=== PATIENT | male | born 1985 | race Caucasian/White ===

== ENCOUNTER → 2019-09-13 12:51 | Outpatient (ROUT) | payer OTHER, MEDICAID, SELFPAY ==
[2019-09-13 13:18] LABS: Influenza A - CEPHEID Flu A NEGATIVE (NEGATIVE); Influenza B - CEPHEID Flu B NEGATIVE (NEGATIVE)
== END ==
PROVIDERS: Family Provider Family Medicine; Visit Provider Family Medicine
DX: R50.9 Fever, unspecified (principal); R05 Cough
CPT/HCPCS: 87502

== ENCOUNTER → 2020-02-22 13:26 | Outpatient (ROUT) | payer OTHER, MEDICAID, SELFPAY ==
[2020-02-22 16:07] LABS: INR 1.1 (0.9-1.3); Prothrombin Time 12.4 SECONDS (10.1-12.7)
== END ==
PROVIDERS: Family Provider Family Medicine; PCP Family Medicine; Visit Provider Family Medicine
DX: K62.5 Hemorrhage of anus and rectum (principal)
CPT/HCPCS: 85610

== ENCOUNTER 2024-11-04 00:46 | Emergency (ER) | payer OTHER, SELFPAY ==
--- NOTE | 2024-11-04 00:47 | EKG_ITS ---
[facility] [address] [place] [address] Test Date: 2024-11-04 Pat Name: Jan Smith Department: [facility] Room: Gender: Male Legal Billing Coordinator: : 1985 Requested By: Order Number: [id number] Reading MD: Vini Hawk Measurements Intervals [place] Rate: 87 P: 57 GA: 170 QRS: 23 QRSD: 76 T: 41 QT: 358 QTc: 430 Interpretive Statements Normal sinus rhythm Electronically Signed On 11-04-2024 8:01:07 PST by Vini Hawk
[2024-11-04 00:50] VITALS: BP 142/86; PULSE 95; RESP 20; TEMP 36.8; O2SAT 99; BMI 24.3
--- NOTE | 2024-11-04 01:02 | ED.CHESTPAIN ---
HPI - Chest Pain General Chief Complaint: Extremity Problem,Nontraumatic Stated Complaint: Possible heart attack or stroke Time Seen by Provider: 11/04/24 00:57 Source: patient Mode of arrival: Wheelchair History of Present Illness HPI narrative: 39-year-old male with a past medical history of anxiety depression comes into the ED from home for evaluation of multiple complaints. Patient states that he has been feeling a weird pressure sensation into his chest denies any actual shortness of breath or pain, he also states that he has been feeling these tingling sensations throughout his whole-body after he woke up. States that it is hard to describe but feels like his whole-body is asleep and is worried he has having a stroke. Patient does admit to taking edibles on a daily basis states he did take this last night before sleeping. At time of evaluation patient NIH of 0 no focal deficits noted. Not complaining of any other symptoms such as headache visual disturbances shortness of breath fever chills nausea vomiting abdominal pain or any other GI/ some time. Related Data Home Medications Medication Instructions Recorded Confirmed No Known Home Medications 11/08/19 11/08/19 Allergies Allergy/AdvReac Type Severity Reaction Status Date / Time cefaclor [From Ceclor] AdvReac Unknown Verified 11/08/19 09:27 Review of Systems Review of Systems Narrative: General: Denies fever, chills, weight loss HEENT: Denies headache, eye drainage, eye irritation, head trauma, sore throat, voice change Cardiovascular: Positive chest pressure, Denies any chest pain, palpitations, shortness of breath, tachycardia Respiratory: Denies any shortness of breath, cough, wheeze, stridor GI/: Denies any abdominal pain, nausea, vomiting, diarrhea, bright red blood per rectum, melanotic stools, urinary frequency, urinary retention, dysuria, hematuria MSK: Denies any joint pain, muscle pains, swelling Skin: Denies any rashes, lesions, discoloration Neuro: Tingling sensation throughout his body, Denies any headache, lightheadedness, dizziness, fainting, weakness Psych: Denies SI/HI Patient History Medical History (Updated 11/04/24 @ 02:28 by Noel Burnham DO) Thumb laceration Social History Smoking Status: Never smoker Smoking Status: Never smoker Alcohol type: beer Exam Narrative Exam Narrative: General: Cooperative, comfortable, well-developed, not in acute distress HEENT: Normocephalic, atraumatic, PERRLA, normal sclera, eyelids normal, Neck: Active full range of motion, atraumatic Chest: Normal to inspection, negative crepitus, no overlying erythema ecchymosis Respiratory: Normal respiratory effort, not in acute respiratory distress, clear to auscultation bilaterally negative cough, wheeze, tachypnea, rhonchi, rales Cardiology: Regular rate rhythm negative gallop, murmur, rubs GI/: Normal to inspection, soft, nonrigid, no tenderness to palpation, exam deferred MSK: Full range of active range of motion of all 4 extremities, atraumatic Skin: No rashes lesions noted Neuro: NIH of 0, no focal deficits noted Alert awake oriented x3, moves all 4 extremities spontaneously, cranial nerves intact, able to answer all questions appropriately follows commands appropriately Psych: Cooperative, negative suicidal or homicidal ideations Initial Vital Signs Initial Vital Signs: Vital Signs Temperature 98.2 F 11/04/24 00:50 Pulse Rate 95 H 11/04/24 00:50 Respiratory Rate 20 11/04/24 00:50 Blood Pressure 142/86 H 11/04/24 00:50 Pulse Oximetry 99 11/04/24 00:50 Oxygen Delivery Method Room Air 11/04/24 00:50 Course Orders Ordered: ED Orders 11/04/24 00:47 EKG-12 Lead Stat 11/04/24 00:58 Complete Blood Count AUTO DIFF Stat Comprehensive Metabolic Panel Stat Lipase Stat MAG [Magnesium] Stat Troponin & CK Cardiac Panel Stat 11/04/24 01:00 Urine Drug Screen, Rapid Stat 11/04/24 01:02 CT head/brain wo con Stat 11/04/24 01:04 XR chest 1V Stat Discontinued Medications Lorazepam (Lorazepam 2 Mg/Ml Inj) 1 mg IV NOW ONE Stop: 11/04/24 01:03 Last Admin: 11/04/24 01:17 Dose: 1 mg Documented By: LEONELA Vital Signs Vital signs: Vital Signs - 8 hr 11/04/24 00:50 Temperature 98.2 F Pulse Rate 95 H Respiratory Rate 20 Blood Pressure 142/86 H Pulse Oximetry 99 Oxygen Delivery Method Room Air MDM - Chest Pain Differential Diagnosis Differential diagnosis: Likely st elevation myocardial infarction, chest pain and other (Electrolyte abnormality, CVA,) Lab Data 11/04/24 00:58 11/04/24 00:58 Labs: Lab Results 11/04/24 11/04/24 Range/Units 00:58 01:00 WBC 9.8 (4.5-11.0) X10^3/uL RBC 5.15 (4.5-5.9) X10^6/uL Hgb 14.9 (13.5-17.5) g/dL Hct 43.5 (41-53) % MCV 84.5 (80-100) fL MCH 29.0 (26-34) PG MCHC 34.3 (30-36) % RDW 13.1 (11.6-14.8) % Plt Count 340 (150-400) X10^3/uL Neut % (Auto) 50.5 (50-75) % Lymph % (Auto) 37.6 (25-40) % [place] % (Auto) 7.3 (3-14) % Eos % (Auto) 3.9 (2-4) % Baso % (Auto) 0.7 (0-2) % Neut # (Auto) 5000 (8359-8594) /uL Lymph # (Auto) 3700 (1977-0024) /uL [place] # (Auto) 700 (0-900) /uL Eos # (Auto) 400 (0-450) /uL Baso # (Auto) 100 (0-100) /uL Sodium 137 (137-145) mmol/L Potassium 3.7 (3.4-5.1) mmol/L Chloride 103 (98-107) mmol/L Carbon Dioxide 27 (22-32) mmol/L BUN 16 (9-20) mg/dL Creatinine 1.21 (0.66-1.25) mg/dL Estimated GFR > 60 (>60) mL/min BUN/Creatinine Ratio 13.2 (6-22) Glucose 210 H (70-100) mg/dL Calcium 9.1 (8.4-10.2) mg/dL Magnesium 2.2 (1.6-2.3) mg/dL Total Bilirubin 0.6 (0.2-1.3) mg/dL AST 33 (17-59) IU/L ALT 27 (<50) IU/L Alkaline Phosphatase 61 (38-126) U/L Total Creatine Kinase 73 (55-170) U/L Troponin I < 0.012 (0.01-0.034) ng/mL Total Protein 7.2 (6.3-8.2) g/dL Albumin 4.3 (3.5-5.0) g/dL Globulin 2.9 (1.7-4.1) g/dL Albumin/Globulin Ratio 1.5 (1.0-2.8) Lipase 63 (23-300) U/L U Opiates 300ng/mL cut Negative (Negative) Ur Oxycodone Screen Negative (Negative) Urine Methadone Screen Negative (Negative) Ur Barbiturates Screen Negative (Negative) U Tricyclic Antidepress Negative (Negative) Ur Phencyclidine Scrn Negative (Negative) Ur Amphetamines Screen Negative (Negative) U Methamphetamines Scrn Negative (Negative) Ur MDMA Scrn (Ecstasy) Negative (Negative) U Benzodiazepines Scrn Negative (Negative) Urine Cocaine Screen Negative (Negative) U Marijuana (THC) Screen Positive H (Negative) Urine pH Normal (Normal) Urine Specific [place] Normal (Normal) Ur Creatinine Normal (Normal) Imaging Data Chest x-ray: Radiologist's Impression: Preliminary read showing no acute cardiopulmonary abnormalities CT scan - head: Radiologist's Impression: [place] [address] CT Scan Report Signed Patient: Jan Smith MR#: [id number] : 1985 Acct:[id number] Age/Sex: 39 / M Date of Service: 11/04/24 Loc: ED Accession Number: [id number] Procedure: CT head/brain wo con Ordering Provider: Noel Burnham D.O. PROCEDURE: CT HEAD/BRAIN WO CON INDICATIONS: numbness tingling throughout body TECHNIQUE: Noncontrast 4.5 mm thick angled axial sections acquired from the foramen magnum to the vertex, with coronal and sagittal reformats. For radiation dose reduction, the following was used: automated exposure control, adjustment of mA and/or kV according to patient size. COMPARISON: None. FINDINGS: Image quality: Diagnostic. CSF spaces: Basal cisterns are patent. No extra-axial fluid collections. Ventricles are normal in size and shape. Brain: No midline shift. No intracranial masses or hemorrhage. Burgess-white matter interface is normal. Skull and face: Calvarium and visualized facial bones are intact, without suspicious lesions. Sinuses: Air-fluid level is seen in the right maxillary sinus. Frothy material is seen in the left maxillary sinus. The remaining visualized paranasal sinuses and the mastoid air cells are clear. IMPRESSION: 1. No acute intracranial pathology. 2. Acute sinusitis involving the bilateral maxillary sinuses. ECG Data Interpretation: EKG interpreted ED physician sinus 87 beats per minute QTC [address] changes no STEMI MDM Narrative Medical decision making narrative: 39-year-old male history anxiety depression presents for multiple complaints. Stating that he was feeling chest pressure upon awaking, states that he woke up several hours ago feeling slightly anxious, was also complaining of tingling sensation to his whole-body denies any trauma or falls at evaluation NIH of 0. EKG nonischemic in nature, CT head showing no acute intracranial abnormality concerning for stroke mass or bleed. Patient's lab work unremarkable, troponin negative, heart score 0. Chest x-ray without any acute cardiopulmonary abnormalities. Patient is urinalysis was positive for marijuana, he admits to eating edibles daily, patient's symptoms more likely secondary to acute anxiety/stress. Regardless patient was instructed to follow up with PCP and Cardiology in outpatient setting. Strict return precautions were given he verbalized understanding of this and agrees to being discharged home with outpatient follow up Discharge Plan Departure Patient Disposition: Home Clinical Impression: Chest pressure Activity Restrictions/Additional Instructions: Please follow up with Cardiology and primary care Please read the discharge instructions sheet carefully and bring all papers to all doctor follow-up visits, as it may contain information that your doctor may want to see. Disease processes change and evolve, if your symptoms worsen or if you develop any new symptoms that are concerning to you please return for evaluation. Your evaluation today does not show any evidence of any life-threatening/serious illnesses requiring admission to the hospital or surgery. Please follow-up with your doctor for re-evaluation in approximately 1 day. Seek immediate medical attention for any worrisome symptoms. *If you do not have a primary care provider please contact the [facility] Resource line at [phone]. They will ask some questions about your medical history and help get you set up with a doctor in the community. Prescriptions: No Action No Known Home Medications Referrals: Frantz Johnson MD [Physician] - Tauxe,Timbo, MD [Primary Care Provider] - Stand Alone Forms: Patient Portal/API/Survey
--- NOTE | 2024-11-04 01:04 | DI.RAD.S_ITS ---
PROCEDURE: XR CHEST 1V INDICATIONS: chest pain TECHNIQUE: One view of the chest was acquired. COMPARISON: None. FINDINGS: Surgical changes and devices: None. Lungs and pleura: Lungs are clear. No pleural effusions or pneumothorax. Mediastinum: Mediastinal contours appear normal. Heart size is normal. Bones and chest wall: No suspicious bony lesions. Overlying soft tissues appear unremarkable. IMPRESSION: No acute cardiopulmonary abnormality is seen. Approved by: John Bell M.D. on 11/04/2024 at 1:31
--- NOTE | 2024-11-04 01:10 | PC.NURSE ---
Pt provided urine sample in urinal standing next to ED stretcher without assistance. Taken to imaging via wheel chair with ekg technician.
[2024-11-04 01:11] LABS: Add Manual Diff / Slide Review NO; Basophils Absolute Auto 100 /uL (0-100); Basophils Percent Auto 0.7 % (0-2); Eosinophils Absolute Auto 400 /uL (0-450); Eosinophils Percent Auto 3.9 % (2-4); Hematocrit 43.5 % (41-53); Hemoglobin 14.9 g/dL (13.5-17.5); Lymphocytes Absolute Auto 3700 /uL (1100-4500); Lymphocytes Percent Auto 37.6 % (25-40); Mean Corpuscular HGB Conc 34.3 % (30-36); Mean Corpuscular Volume 84.5 fL (80-100); Monocytes Absolute Auto 700 /uL (0-900); Monocytes Percent Auto 7.3 % (3-14); Neutrophils Absolute Auto 5000 /uL (1500-7000); Neutrophils Percent Auto 50.5 % (50-75); Platelet Count 340 X10^3/uL (150-400); Red Blood Cell Count 5.15 X10^6/uL (4.5-5.9); Red Cell Distribution Width 13.1 % (11.6-14.8); White Blood Cell Count 9.8 X10^3/uL (4.5-11.0)
[2024-11-04] MEDS: LORazepam 2 MG/ML INJ 1 MG IV (01:17)
[2024-11-04 01:20] VITALS: BP 131/80; PULSE 90; O2SAT 95
[2024-11-04 01:24] LABS: Alanine Aminotransferase 27 IU/L (<50); Albumin 4.3 g/dL (3.5-5.0); Albumin Globulin Ratio 1.5 (1.0-2.8); Alkaline Phosphatase 61 U/L (38-126); Aspartate Aminotransferase 33 IU/L (17-59); BUN Creatinine Ratio 13.2 (6-22); Bilirubin Total 0.6 mg/dL (0.2-1.3); Blood Urea Nitrogen 16 mg/dL (9-20); Calcium 9.1 mg/dL (8.4-10.2); Carbon Dioxide 27 mmol/L (22-32); Chloride 103 mmol/L (98-107); Creatine Kinase 73 U/L (55-170); Estimated Glomerular Filt Rate > 60 mL/min (>60); Globulin 2.9 g/dL (1.7-4.1); Glucose 210 mg/dL (70-100); HEMOLYSIS < 15 (0-50); Lipase 63 U/L (23-300); Potassium 3.7 mmol/L (3.4-5.1); Sodium 137 mmol/L (137-145); Total Protein 7.2 g/dL (6.3-8.2)
[2024-11-04 01:27] LABS: Ur Creatinine Normal (Normal); Ur Specific Gravity Normal (Normal); Urine Amphetamines Negative (Negative); Urine Barbiturates Negative (Negative); Urine Benzodiazepines Negative (Negative); Urine Cocaine Negative (Negative); Urine MDMA Negative (Negative); Urine Methadone Negative (Negative); Urine Methamphetamines Negative (Negative); Urine Opiates Negative (Negative); Urine Oxycodone Negative (Negative); Urine Phencyclidine Negative (Negative); Urine THC Positive (Negative); Urine Tricyclic Antidepressant Negative (Negative); Urine pH Normal (Normal)
[2024-11-04 01:30] VITALS: BP 121/76; PULSE 94; O2SAT 95
[2024-11-04 01:31] LABS: Magnesium 2.2 mg/dL (1.6-2.3)
[2024-11-04 01:35] LABS: Troponin I < 0.012 ng/mL (0.01-0.034)
[2024-11-04 02:00] VITALS: BP 108/70; PULSE 88; O2SAT 95
[2024-11-04 02:29] VITALS: PULSE 95; O2SAT 97
[2024-11-04 02:30] VITALS: BP 114/75; PULSE 89; O2SAT 97
== END 2024-11-04 02:37 | disposition home or self-care (01) ==
PROVIDERS: Emergency Provider Student in an Organized Health Care Education/Training Program; Family Provider Family Medicine; PCP Family Medicine
DX: R07.9 Chest pain, unspecified (principal); R20.0 Anesthesia of skin; R47.81 Slurred speech; R29.700 NIHSS score 0
CPT/HCPCS: 36415; 70450; 71045; 80053; 80305; 82550; 83690; 83735; 84484; 85025; 93005; 96374; 99284; J2060